=== PATIENT | male | born 1940 | race Caucasian/White ===

== ENCOUNTER 2016-03-18 15:04 | Emergency (ER) | payer OTHER ==
--- NOTE | 2016-03-18 14:42 | DIAGNOSTIC IMAGING REPORT ---
PROCEDURE: CT ABD/PELVIS WITH CONTRAST CLINICAL INDICATION: 96 ml TECHNIQUE: of Isovue 300 were injected intravenously and axial images were obtained of the entire abdomen and pelvis with sagittal and coronal reformations. COMPARISON: None. FINDINGS: ABDOMEN: PELVIS: IMPRESSION: 1. All CT scans at this facility use dose modulation, iterative reconstruction, and/or weight-based dosing when appropriate to reduce radiation dose to as low as reasonably achievable.
--- NOTE | 2016-03-18 16:50 | ED ORDER SUMMARY ---
..... Patient: MINAL KEITH OrderSheet [facility] VisitID: [id number] [place] [address] 75y, M Registration Date/Time: 03/18/2016 ORDER SHEET Weight: 68.0 kg (stated) Allergies: No Known Drug Allergy GENERAL ORDERS: CBC w Diff Urgent (15:21 03/18/2016 Yamel FELTON) (Ack 15:43 Jake) (15:59 EHassan R.N.) CMP Urgent (15:03/18/2016 Yamel FELTON) (Ack 15:43 Jake) (15:59 EHassan R.N.) UA-Culture if indicated Urgent (15:03/18/2016 Yamel FELTON) (Ack 15:43 Jake) (16:25 EHassan R.N.) PT with INR Urgent (15:21 03/18/2016 Yamel FELTON) (Ack 15:43 Jake) (15:59 EHassan R.N.) PTT Urgent (15:03/18/2016 Yamel FELTON) (Ack 15:43 Jake) (15:59 EHassan R.N.) Amylase Urgent (15:21 03/18/2016 Yamel FELTON) (Ack 15:43 Jake) (15:59 EHassan R.N.) Lipase Urgent (15:03/18/2016 Yamel FELTON) (Ack 15:43 Jake) (15:59 EHassan R.N.) Type & Cross (anemia) (anemia) Urgent (16:30 03/18/2016 Yamel FELTON) (16:51 EHassan R.N.) MEDICATION ORDERS: IV FLUIDS: IV Saline Lock (15:21 03/18/2016 Yamel FELTON) (16:00 EHassan R.N.) ORDER SHEET NOTES: [Electronically signed by Joseline Candelario R.N. (19:46 03/18/2016)] [Electronically signed by Manuel Dobbs MD (21:18 03/18/2016)] [Electronically locked/signed by Joseline Candelario R.N. (19:46 03/18/2016)]
--- NOTE | 2016-03-18 16:50 | ED NURSING NOTES ---
Clinical Report - Nurses [place] [address] [place] [address] 03/18/2016 15:06 Patient: MINAL KEITH TRIAGE Triage time 1520 PM. Acuity: LEVEL 3. Chief Complaint: FATIGUE, NAUSEA, CONSTIPATION and ABDOMINAL PAIN. Alert. No acute distress. SEPSIS SCREEN: Sepsis Screen. Negative (no infection suspected/documented). TRU COMA SCORE: Tru Coma Scale: 15- eyes open spontaneously (4); best verbal response- oriented x 4 (5); best motor response- obeys commands (6). --15:33 Joseline Candelario R.N. 15:18 03/18/16. BP: 132/50 (regular adult cuff) taken on the left arm, via an automated monitor, while lying. HR: 72. RR: 16. O2 saturation: 100% on room air. Temp: 97.7 F. Pain level now: 0/10. --15:33 Joseline Candelario R.N. Weight: 68 kg stated. Height/Length: 73 inches Per Patient. BMI: 19.8. --17:17 Joseline Candelario R.N. Medications None. --15:29 Joseline Candelario R.N. Medication/allergy information source: the patient. --15:33 Joseline Candelario R.N. Allergies No Known Drug Allergy. --15:29 Joseline Candelario R.N. History Arrived by private vehicle. Historian: patient. Primary physician referred the patient for evaluation (Dr. Jain). 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 Treatment ACCOUNT RESOLUTION SPECIALIST: None. PAST MEDICAL HX: Immunizations: status is unknown. SOCIAL HX: Former smoker, end date 1983. Regular alcohol use; consumes three liquor drinks daily. No infectious disease exposure. ABUSE ASSESSMENT: No report of abuse. SELF HARM ASSESSMENT: A self harm assessment was performed. The patient answered "no" to the question "Do you have thoughts of harming or killing yourself?" and "Have you recently had thoughts about harming or killing others?". FALL RISK ASSESSMENT: Fall risk assessment completed. No fall risk identified. NUTRITIONAL RISK ASSESSMENT: The nutritional risk assessment revealed no deficiencies. FUNCTIONAL ASSESSMENT: Functional assessment: no impairments noted. LEARNING NEEDS ASSESSMENT: The learning needs assessment revealed no barriers. SKIN INTEGRITY ASSESSMENT: Skin integrity risk assessment completed. No skin integrity risk identified. --15:33 Joseline Candelario R.N. PROBLEMS: Cancer. --15:31 Joseline Candelario R.N. ADDITIONAL SURGERIES: Fracture Repair. Removal of carcinoma of nose. --15:31 Joseline Candelario R.N. Assessment GENERAL / NEURO / PSYCH: Alert. Oriented X 4. Appears in no acute distress. Patient appears calm and cooperative. RESPIRATORY: Respirations not labored. Decreased breath sounds in the left upper lung. CVS: Capillary refill less than 2 seconds and is greater than 2 seconds. SKIN: Mucous membranes are pink. Skin is warm and dry. --15:33 Joseline Candelario R.N. Interventions ID band on patient. --15:33 Joseline Candelario R.N. PHYSICAL ASSESSMENT Ambulatory to room. GENERAL / NEURO / PSYCH: Alert. Oriented X 4. Appears in no acute distress. RESPIRATORY: Respirations not labored. Decreased breath sounds in the left upper lung posteriorly. CVS: Capillary refill less than 2 seconds. Pulses within normal limits. GI / : Abdomen soft and nontender and normal bowel sounds. SKIN: Skin intact. Skin is warm and dry. Normal skin turgor. --15:36 Joseline Candelario R.N. NURSING PROGRESS NOTES 15:15 03/18/2016 Site #1 started via IV in the right antecubital space with an 20g angiocath; one attempt. Saline lock flushed with 10 mL saline (Pt had CT scan and came over to ED for further evaluation). --15:40 Joseline Candelario R.N. The initial plan of care for this patient has been created This plan of care was discussed with the patient. Patient gowned and gowned. Head of bed elevated 30 degrees. Warming measures: blanket applied. Reassurance given and given. Two patient identifiers checked. Call light placed in reach. Side rails up x 1. Bed placed in lowest position. Brakes of bed on. Brakes of chair on. Patient ready for evaluation- chart flagged. --15:41 Joseline Candelario R.N. Critical value relayed to ED by Hansel. Critical value received by Joseline Candelario RN. Hgb: 5.5. Hct: 18.5. Critical value read back. Verified lab result. ED physician notifed of critical value (at 1600). Orders were received. --17:32 Joseline Candelario R.N. late entry - 16:15 PM. Patient ID band checked for patient name, birthdate and medical record number: family confirmed. Blood samples drawn from the right antecubital space peripheral IV site by nurse per protocol ; labeled in presence of the patient and sent to lab: rainbow set. Initial blood discarded. Line flushed with 10 mL normal saline post blood draw. The patient is calm and resting quietly. Overall patient status is the same- he states feels the same. GENERAL / NEURO / PSYCH: Denies headache or anxiety. RESPIRATORY: Denies difficulty breathing. No respiratory distress present. Respiratory distress present. Breath sounds abnormal. No decreased breath sounds, crackles or wheezes. CVS: Denies chest pain. GI / : Denies nausea. SKIN: Skin is warm and dry. Skin color within normal limits. Skin color normal. No diaphoresis noted. Two patient identifiers checked. Call light placed in reach. Side rails up x 2. Brakes of bed on. Brakes of chair on. --17:38 Joseline Candelario R.N. 17:00 03/18/16. BP: 138/51. HR: 68. RR: 12. O2 saturation: 100% on room air. Pain level now: 03/25. --17:38 Joseline Candelario R.N. late entry -16:00 PM. --17:40 Joseline Candelario R.N. 16:00 03/18/16. BP: 122/71 taken on the left arm, via an automated monitor, while lying. HR: 76. RR: 15. O2 saturation: 100%. Pain level now: 010. --17:40 Joseline Candelario R.N. DISPOSITION / DISCHARGE 18:43 03/18/2016 Site #[address] upon transfer; patent. Good blood return present. Converted to saline lock and flushed; flushes easily. --19:43 Joseline Candelario R.N. Departure time: 1920 PM. Condition at departure: stable. The goals identified in the patient's plan of care were met. Transferred to [facility]. Summary of care provided to EMS and transfer facility. Report was given to a nurse via a phone call. ( Report given to ANAYA Clark over at [facility], pt transported via EMS, VSS, safely, IV R/AC). Patient's personal items include: shirt, pants, dress, skirt, undergarments, coat and wallet; items were placed in belongings bag and given to the family. FALL RISK ASSESSMENT: Fall risk assessment completed. No fall risk identified. TRU COMA SCORE: [place] Coma Scale: 15- eyes open spontaneously (4); best verbal response- oriented x 4 (5); best motor response- obeys commands (6). --19:43 Joseline Candelario R.N. 19:00 03/18/16. BP: 123/54 (regular adult cuff) taken on the left arm, via an automated monitor, while lying. HR: 71. RR: 14. O2 saturation: 100% on room air. Temp: 98.4 F (oral). Pain level now: 0/10. --19:43 Joseline Candelario R.N. Locked/Released at 03/18/2016 19:46 by Joseline Candelario R.N.
--- NOTE | 2016-03-18 16:50 | ED ORDER SUMMARY ---
..... Patient: MINAL KEITH OrderSheet [facility] VisitID: [id number] [place] [address] 75y, M Registration Date/Time: 03/18/2016 ORDER SHEET Weight: 68.0 kg (stated) Allergies: No Known Drug Allergy GENERAL ORDERS: CBC w Diff Urgent (15:21 03/18/2016 Yamel FELTON) (Ack 15:43 Jake) (15:59 EHassan R.N.) CMP Urgent (15:03/18/2016 Yamel FELTON) (Ack 15:43 Jake) (15:59 EHassan R.N.) UA-Culture if indicated Urgent (15:03/18/2016 Yamel FELTON) (Ack 15:43 Jake) (16:25 EHassan R.N.) PT with INR Urgent (15:21 03/18/2016 Yamel FELTON) (Ack 15:43 Jake) (15:59 EHassan R.N.) PTT Urgent (15:03/18/2016 Yamel FELTON) (Ack 15:43 Jake) (15:59 EHassan R.N.) Amylase Urgent (15:21 03/18/2016 Yamel FELTON) (Ack 15:43 Jake) (15:59 EHassan R.N.) Lipase Urgent (15:03/18/2016 Yamel FELTON) (Ack 15:43 Jake) (15:59 EHassan R.N.) Type & Cross (anemia) (anemia) Urgent (16:30 03/18/2016 Yamel FELTON) (16:51 EHassan R.N.) MEDICATION ORDERS: IV FLUIDS: IV Saline Lock (15:21 03/18/2016 Yamel FELTON) (16:00 EHassan R.N.) ORDER SHEET NOTES: [Electronically signed by Joseline Candelario R.N. (19:46 03/18/2016)] [Electronically signed by Manuel Dobbs MD (21:18 03/18/2016)] [Electronically locked/signed by Joseline Candelario R.N. (19:46 03/18/2016)]
--- NOTE | 2016-03-18 16:50 | ED CLINICAL REPORT ---
Clinical Report - Physicians/Mid Levels [facility] [address] [place] [address] 03/18/2016 15:06 Patient: RANDAL HAYNES Time Seen: 15:20. Arrived- By private vehicle. Historian- patient. HISTORY OF PRESENT ILLNESS Chief Complaint: abdominal mass. This started about 5 months ago and is still present and worsening. It was gradual in onset and has been constant. It is described as located in the left lower quadrant. No nausea, loss of appetite, vomiting or diarrhea. Recent medical care: The patient was seen recently at another facility in a clinic. Seen for similar symptoms. Evaluation/treatment: abdominal CT scan and labs. ( he was seen at Dr. Merrill's office this morning. A CT of the abdomen and some blood work was ordered. He was then apparently sent directly here to the emergency room from the imaging department.). REVIEW OF SYSTEMS The patient has had mild constipation (chronically). He has had bloody stools (He says that Dr. Merrill reported hidden blood in his stool when he was last examined.). No chills, fever, sweats, weight loss or calf pain. No chest pain, cough, difficulty breathing, pedal edema or palpitations. No urinary problems. He has had weakness, (e says that this has become progressively worse over the past year.). All systems otherwise negative, except as recorded above. PAST HISTORY PCP - Cam. Problems: Cancer. Additional Surgeries: Fracture Repair. Removal of carcinoma of nose. Medications: None. Allergies: No Known Drug Allergy. SOCIAL HISTORY Never smoker. No alcohol use or drug use. Is a local resident. FAMILY HISTORY Stroke in first-degree relative (father and sibling). ADDITIONAL NOTES The nursing notes have been reviewed. PHYSICAL EXAM Vital Signs: 03/18/2016 15:18 BP: 132/50. HR: 72. RR: 16. O2 saturation: 100%. Temp: 97.7 F. Pain level now: 0/10. Have been reviewed. Appearance: Alert. Eyes: Pupils equal, round and reactive to light. ENT: Pharynx normal. Neck: Normal inspection. Neck supple. CVS: Normal heart rate and rhythm. Heart sounds normal. Respiratory: No respiratory distress. Breath sounds normal. Abdomen: Soft and nontender. Severe splenomegaly. Back: Normal inspection. No CVA tenderness. Rectal: Rectal exam normal and nontender. Stool heme negative. (POC test reference range: negative). Skin: Pallor. Extremities: Extremities exhibit normal ROM. No calf tenderness. No lower extremity edema. LABS, X-RAYS, AND EKG Abdominal CT: Name: Randal Haynes : 1940 MR#: [id number] Ordering Provider: TROY MERRILL Exam(s): CT ABD/PELVIS WITH CONTRAST Date of Exam: 03/18/2016 __ Addendum created at 03/18/2016 3:16:53 PM: Indication: Left lower quadrant pain. Technique: 96 ml of Isovue 370 were injected intravenously and axial images were obtained of the entire abdomen pelvis with sagittal and coronal re-formations. Comparison : None Findings: Abdomen: Lung bases are clear. Mild cardiomegaly. Coronary atherosclerosis. Enlarged spleen measures 25.8 cm with a few hypo dense areas which could represent small infarcts versus incomplete opacification. Contracted gallbladder with calcified gallstones, largest 1.3 cm. Liver, pancreas and adrenal glands are normal. Right renal lower pole scar with parenchymal calcification. Small left renal cyst. Moderate atherosclerosis of the aorta. Scattered diverticula. No retroperitoneal adenopathy. Pelvis: Appendix not well visualized. Severe sigmoid diverticulosis small ascites in the pelvis. No pelvic mass or inflammatory changes. Moderate L4-5 disc space narrowing. 1 cm right acetabular lytic lesion. Osteopenia pill Impression: 1. Splenomegaly. Spleen at risk of rupture. 2. Cholelithiasis 3. Diverticulosis 4. Small ascites 5. 1 cm of right acetabular lytic lesion. The study was interpreted by the radiologist and contemporaneously by me. Laboratory Tests: UA-Culture if indicated: (SHERLEY: 03/18/2016 16:15) ( MsgRcvd 03/18/2016 16:45) Final results Test Result Flag Units (Reference) URINE COLOR YELLOW URINE APPEARANCE CLEAR URINE GLUCOSE NEGATIVE (NEGATIVE) URINE BILIRUBIN NEGATIVE (NEGATIVE) URINE KETONE NEGATIVE (NEGATIVE) URINE SPECIFIC GRAVITY 1.010 (1.010-1.030) URINE PH 7.0 (5.0-8.0) URINE PROTEIN NEGATIVE (NEGATIVE) URINE UROBILINOGEN 1.0 EU/dL (0.2-1.0) URINE NITRITE NEGATIVE (NEGATIVE) URINE BLOOD NEGATIVE (NEGATIVE) URINE LEUK ESTERASE NEGATIVE (NEGATIVE) URINE RBC 0-1 rbc/hpf (0-1) URINE WBC 1-3 wbc/hpf (0-1) URINE EPITHELIAL CELLS 0-1 EPI/hpf (0-5) URINE BACTERIA NONE SEEN (NONE SEEN) URINE COMMENT CULT NOT INDICATED URINE CULTURES ARE SET-UP BASED ON THE FOLLOWING CRITERIA:POSITIVE NITRITEPOSITIVE LEUKOCYTE ESTERASEGREATER THAN 10 WHITE BLOOD CELLSMODERATE (2+) OR GREATER BACTERIA CBC w Diff: (SHERLEY: 03/18/2016 15:57) ( [facility] 03/18/2016 17:28) Final results Test Result Flag Units (Reference) WHITE BLOOD COUNT 83.3 #*H K/uL (4.5-11.5) CRITICAL RESULTS CALLEDCalled to [facility] 03/18/161628Were 2 patient identifiers used? YWas the result read back? Y CORRECTED WBC 71.8 K/uL RED BLOOD COUNT 2.31 L M/uL (4.50-5.90) HEMOGLOBIN 5.5 *L gm/dL (13.5-17.5) CRITICAL RESULTS CALLEDCalled to [facility] 03/18/161628Were 2 patient identifiers used? YWas the result read back? Y HEMATOCRIT 18.1 *L % (41.0-53.0) CRITICAL RESULTS CALLEDCalled to [facility] 03/18/169Were 2 patient identifiers used? YWas the result read back? YCRITICAL RESULTS CALLEDCalled to [facility] 03/18/16 1630Were 2 patient identifiers used? YWas the result read back? Y MEAN CELL VOLUME 80 fL (80-100) MEAN CORPUSCULAR HGB 24 L pg (26-34) MEAN CORPUSCULAR HGB CONC 30 L g/dL (31-37) RED CELL DISTRIBUTION WIDTH 39.0 H % (11.6-14.8) PLATELET COUNT 159 K/uL (150-400) NEUTROPHIL % 85.4 H % (50-75) LYMPH % 9.2 L % (25-40) MONO % 1.9 L % (3-14) EOSINOPHIL % 3.5 % (0-4) BASOPHIL % 0 % (0-2) POLY % 31 L % (50-75) BAND % 18 H % (0-8) LYMPH 5 L % (25-40) MONO 1 L % (3-14) EOSINOPHIL % 9 H % (0-4) BASOPHIL % 8 H % (0-2) METAMYELOCYTE % 6 H % (0-1) MYELOCYTE 13 H % (0-1) NUCLEATED RED BLOOD CELL 16 *H (0-1) OTHER CELL TYPE 9 INCLUDES PROMYELOCYTE AND POSSIBLE BLAST CELLS POLYCHROMASIA 2+ HYPOCHROMIA 2+ POIKILOCYTOSIS 2+ ANISOCYTOSIS 1+ SCHISTOCYTES 1+ TEAR DROP CELLS 2+ OVALOCYTES 2+ MELINA CELLS 2+ JUAN RODS 1+ OCT COMMENT GIANT PLATELETS PT with INR: (SHERLEY: 03/18/2016 15:57) ( MsgRcvd 03/18/2016 16:21) Final results Test Result Flag Units (Reference) INR 1.3 H (0.8-1.2) Low Intensity Therapy: INR 1.5-2.0 PT range 18.5-23.1Mod.Intensity Therapy: INR 2.0-3.0 PT range 23.1-31.5High Intensity Therapy: INR 2.5-3.5 PT range 27.4-35.5High Intensity Therapy 2: INR 3.0-4.0 PT range 31.5-39.3 APTT 39 H SECONDS (24-34) CMP: (SHERLEY: 03/18/2016 15:57) ( MsgRcvd 03/18/2016 16:40) Final results Test Result Flag Units (Reference) GLUCOSE 90 mg/dL (70-110) BUN 28 H mg/dL (7-18) CREATININE 1.3 mg/dL (0.6-1.3) Estimated GFR 56.89 mL/min Estimated GFR- >60 mL/min Note: Persistent reduction over 3 months in eGFR<60 mL/min/1.73 m2 defines CKD. Patients with eGFR values>=60 mL/min/1.73 m2 may also have CKD if evidence ofpersistent proteinuria. Additional information may be foundat www.kidney.org. SODIUM 140 mmol/L (136-145) POTASSIUM 4.8 mmol/L (3.5-5.1) CHLORIDE 106 mmol/L (98-107) CARBON DIOXIDE 26 mmol/L (21-32) CALCIUM 7.5 L mg/dL (8.5-10.1) TOTAL PROTEIN 6.0 L g/dL (6.4-8.2) ALBUMIN 3.0 L g/dL (3.3-5.0) BILIRUBIN, TOTAL 0.9 mg/dL (0.0-1.0) ALKALINE PHOSPHATASE 165 H U/L (46-116) AST (SGOT) 42 H U/L (15-37) ALT (SGPT) 35 U/L (12-78) LIPASE 106 U/L (73-393) AMYLASE 27 U/L (25-115) . PROGRESS AND PROCEDURES Course of Care: Patient is stable. Discussed case with hospitalist, (Bradley echeverria [place]). Reviewed test results and need for additional work-up. Agreed upon treatment plan and need for patient follow-up. Health care provider will see patient in hospital. Consult obtained from oncology. Dr. Andres. Case discussed. Phone consult only. Will see patient in the hospital. Patient/family counseled. Old medical records reviewed. Disposition: Transferred. CLINICAL IMPRESSION Anemia. Leukocytosis. splenomegaly lytic bony lesion of the pelvis. (Electronically signed by Manuel Dobbs MD 03/18/2016 21:18)
--- NOTE | 2016-03-18 21:18 | ED MAR SUMMARY ---
..... Medication Administration Record [facility] [address] [place], [place] [id number] Patient: MINAL KEITH Visit ID: [id number] 75y, M Weight: 68.0 kg Height/Length: 73 in BMI: 19.8 ALLERGIES: No Known Drug Allergy
--- NOTE | 2016-03-18 21:18 | ED MAR SUMMARY ---
..... Medication Administration Record [facility] [address] [place], [place] [id number] Patient: MINAL KEITH Visit ID: [id number] 75y, M Weight: 68.0 kg Height/Length: 73 in BMI: 19.8 ALLERGIES: No Known Drug Allergy
--- NOTE | 2016-03-18 21:18 | ED MED RECONCILIATION SUMMARY ---
Patient: MINAL KEITH Medication Reconciliation Report [facility] VisitID: [id number] [address] [place] [address] 75y, M Registration Date/Time: 03/18/2016 Weight: 68.0 kg Height/Length: 73 in. BMI: 19.8 ALLERGIES: No Known Drug Allergy The patient's Home Medications are listed below: NONE. The source(s) of the original Home Medication information: patient The following Medications were given to the patient in the Emergency Department: None. The following Medications were prescribed to the patient: None.
--- NOTE | 2016-03-18 21:18 | ED DISCHARGE INSTRUCTIONS ---
Patient: MINAL KEITH Yissel General Instructions Located [facility] VisitID: [id number] [address] [place] [address] 75y, M Registration Date/Time: 03/18/2016 Anemia. Leukocytosis. splenomegaly lytic bony lesion of the pelvis. (Electronically signed by Manuel Dobbs MD 03/18/2016 21:18)
--- NOTE | 2016-03-18 21:18 | ED MED RECONCILIATION SUMMARY ---
Patient: MINAL KEITH Medication Reconciliation Report [facility] VisitID: [id number] [address] [place] [address] 75y, M Registration Date/Time: 03/18/2016 Weight: 68.0 kg Height/Length: 73 in. BMI: 19.8 ALLERGIES: No Known Drug Allergy The patient's Home Medications are listed below: NONE. The source(s) of the original Home Medication information: patient The following Medications were given to the patient in the Emergency Department: None. The following Medications were prescribed to the patient: None.
--- NOTE | 2016-03-18 21:18 | ED DISCHARGE INSTRUCTIONS ---
Patient: MINAL KEITH Yissel General Instructions [facility] VisitID: [id number] [address] [place] [address] 75y, M Registration Date/Time: 03/18/2016 Anemia. Leukocytosis. splenomegaly lytic bony lesion of the pelvis. (Electronically signed by Manuel Dobbs MD 03/18/2016 21:18)
== END 2016-03-18 19:20 | disposition short-term general hospital (02) ==
LOC: ED SRH 15:06
DX: R16.1 Splenomegaly, not elsewhere classified (principal); M89.8X8 Other specified disorders of bone, other site; D64.9 Anemia, unspecified; D72.829 Elevated white blood cell count, unspecified
CPT/HCPCS: 90001; 90004; 90100; 90155; 91004; 91320; 91544; 91643; 92235; 92530; 93077; 93140; 94001; 94060; 95059; 95067